=== PATIENT | female | born 1965 | race Caucasian/White ===

== ENCOUNTER 2016-09-26 18:38 | Emergency (ER) | payer OTHER ==
[2016-09-26] MEDS ORDERED: Ondansetron INJ* 2 MG/ML VIAL IV ONE (19:43)
[2016-09-26] MEDS ORDERED: NS 0.9% 1000 ML* 1,000 ML IV ONE (19:43)
[2016-09-26] MEDS ORDERED: HYDROmorphone* 1 MG/ML 1 ML SYR IV ONE (19:43)
[2016-09-26 20:09] LABS: Hematocrit 34 % (35-47); Hemoglobin 10.3 g/dl (12.0-16.0); Mean Corpuscular HGB Conc 31 g/dl (31-36); Mean Corpuscular Hemoglobin 24 pg (27-31); Mean Corpuscular Volume 77 fL (80-97); Mean Platelet Volume 8 um3 (7.4-10.4); Red Blood Count 4.39 10^6/ul (4.0-5.4); Red Cell Distribution Width 17 % (10.5-15); White Blood Count 14.9 10^3/ul (3.5-10.8)
[2016-09-26 20:19] LABS: Add Diff/Slide Review? Manual Diff Added; Comments Flag Yes
[2016-09-26 20:27] LABS: Albumin 2.9 g/dL (3.2-5.2); BUN/Creatinine Ratio 12.3 (8-20); C Reactive Protein 25.29 mg/L (< 5.00); Calcium 8.8 mg/dL (8.6-10.3); EGFR African American 143.8 (>60); EGFR Non-African American 111.8 (>60); Globulin 3.5 g/dL (2-4); Total Bilirubin 0.4 mg/dL (0.2-1.0); Total Protein 6.4 g/dL (6.4-8.9)
--- NOTE | 2016-09-26 20:54 | ED ---
Mary Anderson Salem, scribed for Pablo Laura MD on 09/26/16 at 1928 . Skin Complaint - HPI Summary HPI Summary: Patient is a 51 y/o F who presents to the ED with an abscess on the left side of her abd and pain since the last few hours. states that she had gastric bypass surgery on July 31, 2016, but there was a leak, infection, and other complications with the surgery. She received 2 more surgeries after this. She reports 9/10 pain at the site of surgery, but has no other complaints. Pt takes Morphine for neuropathy and back pain with little alleviation to current pain. She is also taking Augmentin. Pt and are frustrated about outcome of surgery. - History of Current Complaint Chief Complaint: EDRashSkinAbscess Stated Complaint: ABSCESS/PAIN ON LEFT SIDE Hx Obtained From: Patient, Family/Leather Polisher Onset/Duration: Started Hours Ago, Still Present Skin Exposure Onset/Duration: Hours Ago Timing: Constant Onset Severity: Moderate Current Severity: Moderate Pain Intensity: 9 Pain Scale Used: 0-10 Numeric Skin Location: Abdomen - Left. Character: Pain Aggravating Symptom(s): Nothing Alleviating Symptom(s): Nothing Associated Signs & Symptoms: Negative Related History: Other: - Surgery. - Allergy/Home Medications Allergies/Adverse Reactions: Allergies Allergy/AdvReac Type Severity Reaction Status Date / Time No Known Allergies Allergy Verified 01/06/14 14:01 PMH/Surg Hx/FS Hx/Imm Hx - Surgical History Surgery Procedure, Year, and Place: Gastric bypass surgery - July 2016 Infectious Disease History: No Infectious Disease History: Denies: Traveled Outside the [place] in Last 30 Days - Family History Known Family History: Positive: Diabetes - Social History Alcohol Use: None Hx Substance Use: No Substance Use Type: Reports: None Hx Tobacco Use: Yes Smoking Status (MU): Former Smoker Review of Systems Negative: Fever Positive: Abdominal Pain, Other - Abscess and leaking, left abd. All Other Systems Reviewed And Are Negative: Yes Physical Exam Triage Information Reviewed: Yes Vital Signs On Initial Exam: Initial Vitals Temp Pulse Resp BP Pulse Ox 97.1 F 93 15 144/59 98 09/26/16 18:41 09/26/16 18:41 09/26/16 18:41 09/26/16 18:41 09/26/16 18:41 Vital Signs Reviewed: Yes Appearance: Positive: Well-Appearing, Pain Distress - Mild. Skin: Positive: Warm, Skin Color Reflects Adequate Perfusion, Dry Head/Face: Positive: Normal Head/Face Inspection Eyes: Positive: EOMI, AIDA ENT: Positive: Normal ENT inspection Neck: Positive: Supple, Nontender Respiratory/Lung Sounds: Positive: Clear to Auscultation, Breath Sounds Present Cardiovascular: Positive: RRR Abdomen Description: Positive: Other: - Two drains: 1. G2 drain, epigastrium 2. Wound drain, periumbilical. Left abd, tender to palpation. Purulent drainage on left lateral abd through skin. Bowel Sounds: Positive: Present Musculoskeletal: Positive: Normal, Strength/ROM Intact Neurological: Positive: Normal, Sensory/Motor Intact, Alert, Oriented to Person Place, Time Psychiatric: Positive: Affect/Mood Appropriate Diagnostics - Vital Signs Vital Signs Temp Pulse Resp BP Pulse Ox 09/26/16 18:41 97.0 F 94 15 144/59 98 - Laboratory Lab Results: Lab Results 09/26/16 09/26/16 09/26/16 Range/Units 20:00 20:00 20:00 WBC 14.9 H (3.5-10.8) 10^3/ul RBC 4.39 (4.0-5.4) 10^6/ul Hgb 10.3 L (12.0-16.0) g/dl Hct 34 L (35-47) % MCV 77 L (80-97) fL MCH 24 L (27-31) pg MCHC 31 (31-36) g/dl RDW 17 H (10.5-15) % Plt Count 337 (150-450) 10^3/ul MPV 8 (7.4-10.4) um3 Absolute Neuts (auto) Pending Absolute Lymphs (auto) Pending Absolute Monos (auto) Pending Absolute Eos (auto) Pending Absolute Basos (auto) Pending Absolute Nucleated RBC Pending Neutrophils % Pending Normal RBC Morphology Pending INR (Anticoag Therapy) 1.06 (0.89-1.11) APTT 28.2 (26.0-36.3) seconds Sodium 136 (133-145) mmol/L Potassium 4.0 (3.5-5.0) mmol/L Chloride 105 (101-111) mmol/L Carbon Dioxide 24 (22-32) mmol/L Anion Gap 7 (2-11) mmol/L BUN 7 (6-24) mg/dL Creatinine 0.57 (0.51-0.95) mg/dL Est GFR ( Amer) 143.8 (>60) Est GFR (Non-Af Amer) 111.8 (>60) BUN/Creatinine Ratio 12.3 (8-20) Glucose 102 H (70-100) mg/dL Lactic Acid (0.5-2.0) mmol/L Calcium 8.8 (8.6-10.3) mg/dL Total Bilirubin 0.40 (0.2-1.0) mg/dL AST 23 (13-39) U/L ALT 12 (7-52) U/L Alkaline Phosphatase 122 H (34-104) U/L C-Reactive Protein 25.29 H (< 5.00) mg/L Total Protein 6.4 (6.4-8.9) g/dL Albumin 2.9 L (3.2-5.2) g/dL Globulin 3.5 (2-4) g/dL Albumin/Globulin Ratio 0.8 L (1-3) 09/26/16 Range/Units 20:00 WBC (3.5-10.8) 10^3/ul RBC (4.0-5.4) 10^6/ul Hgb (12.0-16.0) g/dl Hct (35-47) % MCV (80-97) fL MCH (27-31) pg MCHC (31-36) g/dl RDW (10.5-15) % Plt Count (150-450) 10^3/ul MPV (7.4-10.4) um3 Absolute Neuts (auto) Absolute Lymphs (auto) Absolute Monos (auto) Absolute Eos (auto) Absolute Basos (auto) Absolute Nucleated RBC Neutrophils % Normal RBC Morphology INR (Anticoag Therapy) (0.89-1.11) APTT (26.0-36.3) seconds Sodium (133-145) mmol/L Potassium (3.5-5.0) mmol/L Chloride (101-111) mmol/L Carbon Dioxide (22-32) mmol/L Anion Gap (2-11) mmol/L BUN (6-24) mg/dL Creatinine (0.51-0.95) mg/dL Est GFR ( Amer) (>60) Est GFR (Non-Af Amer) (>60) BUN/Creatinine Ratio (8-20) Glucose (70-100) mg/dL Lactic Acid 0.9 (0.5-2.0) mmol/L Calcium (8.6-10.3) mg/dL Total Bilirubin (0.2-1.0) mg/dL AST (13-39) U/L ALT (7-52) U/L Alkaline Phosphatase (34-104) U/L C-Reactive Protein (< 5.00) mg/L Total Protein (6.4-8.9) g/dL Albumin (3.2-5.2) g/dL Globulin (2-4) g/dL Albumin/Globulin Ratio (1-3) Result Diagrams: 09/26/16 20:00 09/26/16 20:00 Lab Statement: Any lab studies that have been ordered have been reviewed, and results considered in the medical decision making process. Re-Evaluation - Re-Evaluation First Eval Re-Evaluation Time: 20:05 Comment: Informed pt of discussion with surgeon. Course/Dx - Course Course Of Treatment: NO CRITICAL CARE TIME. DISCUSSED WITH PATIENT'S BARIATRIC SURGEON, DR PEREZ, AT [facility] WHO PERFORMED THE SURGERY THAT IS NOW INFECTED. DUE TO THE PATIENT'S PAIN AND SURGICAL WOUND INFECTION, HE ACCEPTED HER INTRANSFER TO [facility]. I SPOKE WITH THE [facility] ED PHYSICIAN, DR DHALIWAL, WHO ACCEPTS THE PATIENT IN TRANSFER, STABLE. - Diagnoses Provider Diagnoses: Abdominal pain, Surgical wound infection - Physician Notifications Discussed Care Of Patient With: Ar Perez Time Discussed With Above Provider: 20:02 Instructed by Provider To: Other - Requested to speak to pt. Reason For Transfer: Other: - Continuity of care. Dr. Dhaliwal @ 2018 at ED, [facility]. Will accept. Discharge - Discharge Plan Condition: Stable Disposition: TRANS HIGHER LVL OF CARE FAC Referrals: Haven Westbrook DO [Primary Care Provider] - The documentation as recorded by the Mary ramsay Salem accurately reflects the service I personally performed and the decisions made by me, Pablo Laura MD.
[2016-09-26 21:05] LABS: Add Path Review? YES; Eosinophils % 2 % (0-6); Neutrophil % 71 % (38-83); RBC Morphology Normal (Normal)
[2016-09-26 22:37] VITALS: BP 127/76
== END 2016-09-26 22:42 | disposition short-term general hospital (02) ==
LOC: ED 18:38
DX: T81.4XXA Infection following a procedure, initial encounter (principal); L02.211 Cutaneous abscess of abdominal wall; Z87.891 Personal history of nicotine dependence; R10.9 Unspecified abdominal pain
CPT/HCPCS: 36415; 80053; 83605; 85025; 85060; 85610; 85730; 86140; 96374; 96375; 99283; J1170; J2405

== ENCOUNTER 2018-02-09 08:15 | Emergency (ER) | payer OTHER ==
[2018-02-09] MEDS ORDERED: NS 0.9% 1000 ML* 1,000 ML IV ONE (09:16)
[2018-02-09] MEDS ORDERED: Ondansetron INJ* 2 MG/ML VIAL IV ONE (09:16)
--- NOTE | 2018-02-09 09:28 | ED ---
Complex/Multi-Sys Presentation - HPI Summary HPI Summary: This patient is a 52 year old F presenting to [facility] accompanied by her with a chief complaint of right facial swelling since 2 days ago. The patient rates the pain 10/10 in severity. Symptoms aggravated by nothing. Symptoms alleviated by nothing. Patient reports dental pain, chills, BARROW, and ear ache in right side. Patient denies fever, sore throat, neck pain, nausea, vomiting. Patient denies taking abx. Hx of neuropathy in legs and feet. Patient denies smoking. - History Of Current Complaint Chief Complaint: EDFacialInjury Hx Obtained From: Patient Onset/Duration: Gradual Onset, Lasting Days - 2 days ago, Still Present Timing: Constant Severity Currently: Mild Severity Initially: Mild Location: Pain At: - right face Aggravating Factor(s): nothing Alleviating Factor(s): nothing Associated Signs And Symptoms: Positive: Headache, Edema - in legs, Other - dental pain on right side, right ear ache. Negative: Nausea, Vomiting, Fever - Allergies/Home Medications Allergies/Adverse Reactions: Allergies Allergy/AdvReac Type Severity Reaction Status Date / Time No Known Allergies Allergy Verified 02/09/18 08:18 PMH/Surg Hx/FS Hx/Imm Hx Endocrine/Hematology History: Reports: Hx Diabetes Opthamlomology History: Denies: Hx Legally Blind EENT History: Denies: Hx Deafness - Surgical History Surgery Procedure, Year, and Place: Gastric bypass surgery - July 2016. hysterectomy Infectious Disease History: Yes Infectious Disease History: Denies: Traveled Outside the [place] in Last 30 Days - Family History Known Family History: Positive: Diabetes - Social History Alcohol Use: None Hx Substance Use: No Substance Use Type: Reports: None Hx Tobacco Use: Yes Smoking Status (MU): Former Smoker Review of Systems Positive: Chills. Negative: Fever Negative: Blurred Vision, Diplopia Positive: Dental Pain - right side, Ear Ache - right ear ache, Other - swelling to right face. Negative: Sore Throat Negative: Chest Pain Negative: Cough Negative: Vomiting, Diarrhea Negative: hematuria Musculoskeletal: Other - negative neck pain Positive: Edema - in bilateral legs Positive: Other - redness in right leg Positive: Headache All Other Systems Reviewed And Are Negative: No Physical Exam - Summary Physical Exam Summary: Appearance: Alert, conversive, nontoxic appearing Skin: Warm, dry, no mottling, no contusions, redness in right leg HEENT: EOMI, PERRL, moist mucous membranes, upper teeth edentulous, abscess to where right incisor was, swelling to right face Neck: No masses on the neck, supple Respiratory: Clear to auscultation, breath sounds present, no rales, no rhonchi , no wheezes Cardiovascular: RRR, pulses are symmetrical in both lower and upper extremities Abdomen: Soft, non-tender Bowel Sounds: Present Musculoskeletal: No CVA tenderness, no obvious deformity, moving all extremities in a grossly normal manner, edema in legs Neurological: A&Ox3, CN II-XII Intact, moving all extremities symmetrically Psychiatric: Normal affect and mood Triage Information Reviewed: Yes Vital Signs On Initial Exam: Initial Vitals Temp Pulse Resp BP Pulse Ox 98.6 F 82 14 128/64 95 02/09/18 08:18 02/09/18 08:18 02/09/18 08:18 02/09/18 08:18 02/09/18 08:18 Vital Signs Reviewed: Yes Diagnostics - Vital Signs Vital Signs Temp Pulse Resp BP Pulse Ox 02/09/18 08:41 98.5 F 80 14 135/52 93 02/09/18 08:18 98.6 F 82 14 128/64 95 - Laboratory Result Diagrams: 02/09/18 09:31 02/09/18 09:31 Lab Statement: Any lab studies that have been ordered have been reviewed, and results considered in the medical decision making process. - CT CT Maxillofacial CT Interpretation: Positive (See Comments) - IMPRESSION: 1. EXTENSIVE CARIOUS DISEASE WITH MULTIPLE PERIAPICAL LUCENCIES BILATERALLY.. 2. THERE IS INFLAMMATORY CHANGE ALONG THE RIGHT FACE SUGGESTIVE OF CELLULITIS. THERE IS NO LOCULATED FLUID COLLECTION TO SUGGEST ABSCESS. THERE IS SOFT TISSUE DENSITY SUPERFICIAL TO THE PLATYSMA FASCIA WHICH MAY REPRESENT PHLEGMON. Dr. Carl has reviewed this report. CT Interpretation Completed By: Radiologist Complex Multi-Symp Course/Dx Course Of Treatment: This patient is a 52 year old F reporting right facial swelling and dental pain since [address] Maxillofacial reveals, per radiologist, extensive carious disease with multiple periapical lucencies bilaterally. There is inflammatory change along the right face suggestive of cellulitis. There is no loculated fluids collection to suggest abscess. There is soft tissue density superficial to the platysma fascia which may represent phlegmon. ED physician has reviewed this radiology report. Test results with no significant abnormalities. In the ED course the patient was given Zofran, clindamycin, contrast, and IV fluids. Patient will be discharged home with prescription for clindamycin and follow up from dentist. The patient is agreeable with this plan. - Diagnoses Provider Diagnoses: Facial cellulitis, Dental disease Discharge - Sign-Out/Discharge Documenting (check all that apply): Patient Departure - discharge home - Discharge Plan Condition: Stable Disposition: HOME Prescriptions: Clindamycin HCl 150 mg PO QID #40 capsule MDD 4 Patient Education Materials: Cellulitis (ED), Toothache (ED), Acute Dental Trauma in Children (ED) Forms: *Work Release Referrals: Haven Westbrook DO [Primary Care Provider] - Additional Instructions: follow up with your dentist. return if worse or any new symptoms. Take the anitbiotics as instructed. return if worse or any new symptoms. It is important to follow up with your primary care physician this week. - Billing Disposition and Condition Condition: STABLE Disposition: Home - Attestation Statements Document Initiated by Burtonibe: Yes Documenting Scribe: Cherri Patel Provider For Whom Mackenzie is Documenting (Include Credential): Zo Carl MD Scribe Attestation: Cherri Anderson, scribed for Zo Carl MD on 02/09/18 at 1707. Scribe Documentation Reviewed: Yes Provider Attestation: The documentation as recorded by the scribeCherri accurately reflects the service I personally performed and the decisions made by Zo hua MD
[2018-02-09 09:52] LABS: ABS Basophils 0 10^3/ul (0-0.2); ABS Eosinophils 0 10^3/ul (0-0.6); ABS Lymphocytes 1.5 10^3/ul (1.0-4.8); ABS Monocytes 0.9 10^3/ul (0-0.8); ABS Neutrophils 7.7 10^3/ul (1.5-7.7); ABS Nucleated RBC 0 10^3/ul; Eosinophil % 0.1 % (0-6); Hematocrit 38 % (35-47); Hemoglobin 12.6 g/dl (12.0-16.0); Lymphocyte % 14.5 % (25-47); Mean Corpuscular HGB Conc 33 g/dl (31-36); Mean Corpuscular Hemoglobin 28 pg (27-31); Mean Corpuscular Volume 84 fL (80-97); Mean Platelet Volume 8.6 um3 (7.4-10.4); Nucleated Red Blood Cells % 0; Platelet Count 253 10^3/ul (150-450); Red Blood Count 4.53 10^6/ul (4.00-5.40); Red Cell Distribution Width 19 % (10.5-15); White Blood Count 10.1 10^3/ul (3.5-10.8)
[2018-02-09 10:07] LABS: EGFR Non-African American 99.2 (>60)
[2018-02-09] MEDS ORDERED: Clindamycin 900 MG/D5W BAG(*) 900 MG/50 ML BAG IVPB ONE (10:10)
[2018-02-09] MEDS ORDERED: Iodixanol* (CONTRAST) 320 MG/ML 100 ML SDV IV ONE (10:17)
--- NOTE | 2018-02-09 11:20 | RAD ---
HISTORY: right upper dental abscess, facial swelling COMPARISONS: None TECHNIQUE: Multiple contiguous axial CT scans were obtained of the face with intravenous contrast, with coronal and sagittal multiplanar reformations. FINDINGS: BONES: There is no displaced fracture or dislocation. The orbital rim is intact. The zygomatic arch is intact. The pterygoid plates are intact. There is extensive carious disease with multiple. Lucencies along the mandible and maxilla bilaterally.. ORBITS: The globes are round. The optic nerves are symmetric. The extraocular musculature is normal. There is no post septal or intraconal inflammatory change. There is no retrobulbar hematoma. PARANASAL SINUSES: There is polypoid mucosal thickening versus mucus retention cysts of the maxillary sinuses bilaterally. BRAIN AND SOFT TISSUE: The buccal mucosa is redundant. There is stranding of the subcutaneous fat along the right mandible without enhancing loculated fluid collection. There is soft tissue density measuring up to 1 cm in size which may represent a phlegmon superficial to the platysma fascia. OTHER: None. IMPRESSION: 1. EXTENSIVE CARIOUS DISEASE WITH MULTIPLE PERIAPICAL LUCENCIES BILATERALLY.. 2. THERE IS INFLAMMATORY CHANGE ALONG THE RIGHT FACE SUGGESTIVE OF CELLULITIS. THERE IS NO LOCULATED FLUID COLLECTION TO SUGGEST ABSCESS. THERE IS SOFT TISSUE DENSITY SUPERFICIAL TO THE PLATYSMA FASCIA WHICH MAY REPRESENT PHLEGMON
[2018-02-09 12:05] VITALS: BP 112/36
== END 2018-02-09 12:03 | disposition home or self-care (01) ==
LOC: ED 08:15
DX: L03.211 Cellulitis of face (principal); K05.6 Periodontal disease, unspecified; Z87.891 Personal history of nicotine dependence
CPT/HCPCS: 36415; 70487; 80053; 83605; 85025; 87040; 96365; 99282; J2405; Q9967

== ENCOUNTER 2018-05-12 04:01 | Emergency (ER) | payer OTHER ==
--- NOTE | 2018-05-12 04:21 | ED ---
Upper Extremity Pain - HPI Summary HPI Summary: Patient is a 52 y/o F presenting to ED with complaints of right arm pain since two days ago. Pt states she woke up wtih pain to her RUE after having slept on her recliner. Pain has progressively worsened and is noted to be located from fingers all the way up to shoulder. No similar prior episodes. No neck pain, no falls, no fevers. PMHx of diabetes, neuropathy, PSHx of gastric bypass. Patient states that she is on morphine 30 mg daily, which she got from [place] [facility]. On triage, pain is rated 10/10, movement is noted to aggravate Sx, nothing is noted to alleviate Sx. - History of Current Complaint Chief Complaint: EDExtremityUpper Stated Complaint: RIGHT ARM PAIN Time Seen by Provider: 05/12/18 04:11 Hx Obtained From: Patient Mechanism Of Injury: Other - woke up wtih pain to her RUE after having slept on her recliner Onset/Duration: Started Days Ago - two days ago, Still Present, Worse Since Timing: Constant, Lasting Days - two days ago Severity Initially: Moderate Severity Currently: Severe Pain Location: Arm - right Aggravating Factor(s): Movement Alleviating Factor(s): Nothing Associated Signs & Symptoms: Positive: Other - NEGATIVE - FALLS. Negative: Fever, Neck Pain - Allergies/Home Medications Allergies/Adverse Reactions: Allergies Allergy/AdvReac Type Severity Reaction Status Date / Time No Known Allergies Allergy Verified 05/12/18 04:05 Home Medications: Home Medications Carbidopa/Levodop 25/100 MG(*) [Sinemet 25/100 TAB(*)] 1 tab PO DAILY 05/12/18 [ History Confirmed 05/12/18] Cholecalciferol (Vitamin D3) [Vitamin D3] 1 tab PO DAILY 05/12/18 [History Confirmed 05/12/18] Cholecalciferol TAB* [Vitamin D TAB*] 1 tab PO WEEKLY 05/12/18 [History Confirmed 05/12/18] Cyanocobalamin TAB* [Vitamin B12 TAB*] 1 tab PO DAILY 05/12/18 [History Confirmed 05/12/18] Cyclobenzaprine TAB* [Flexeril 10 MG TAB*] 1 tab PO DAILY PRN 05/12/18 [History Confirmed 05/12/18] Morphine Sulfate 30 mg PO TID 05/12/18 [History Confirmed 05/12/18] Pregabalin [Lyrica] 150 mg PO TID 05/12/18 [History Confirmed 05/12/18] Sertraline* [Zoloft*] 1 tab PO DAILY 05/12/18 [History Confirmed 05/12/18] PMH/Surg Hx/FS Hx/Imm Hx Endocrine/Hematology History: Reports: Hx Diabetes Cardiovascular History: Denies: Hx Hypertension History: Denies: Hx Renal Disease Sensory History: Denies: Hx Legally Blind, Hx Deafness Opthamlomology History: Denies: Hx Legally Blind - Surgical History Surgery Procedure, Year, and Place: Gastric bypass surgery - July 2016. hysterectomy Infectious Disease History: No Infectious Disease History: Denies: Traveled Outside the [place] in Last 30 Days - Family History Known Family History: Positive: Diabetes - Social History Alcohol Use: None Hx Substance Use: No Substance Use Type: Reports: None Hx Tobacco Use: Yes Smoking Status (MU): Former Smoker Review of Systems Positive: Other - NEGATIVE - FALLS . Negative: Fever Positive: Other - POSITIVE - RUE PAIN; NEGATIVE - NECK PAIN All Other Systems Reviewed And Are Negative: Yes Physical Exam - Summary Physical Exam Summary: VITAL SIGNS: Reviewed. GENERAL: Patient is a well-developed and nourished female who is lying comfortable in the stretcher. Patient is not in any acute respiratory distress. HEAD AND FACE: No signs of trauma. No ecchymosis, hematomas or skull depressions. No sinus tenderness. EYES: PERRLA, EOMI x 2, No injected conjunctiva, no nystagmus. EARS: Hearing grossly intact. Ear canals and tympanic membranes are within normal limits. MOUTH: Oropharynx within normal limits. NECK: Supple, trachea is midline, no adenopathy, no JVD, no carotid bruit, no c- spine tenderness, neck with full ROM. CHEST: Symmetric, no tenderness at palpation LUNGS: Clear to auscultation bilaterally. No wheezing or crackles. CVS: Regular rate and rhythm, S1 and S2 present, no murmurs or gallops appreciated. ABDOMEN: Soft, non-tender. No signs of distention. No rebound no guarding, and no masses palpated. Bowel sounds are normal. EXTREMITIES: No edema, no cyanosis or clubbing. Tenderness all the way from her right shoulder to right hand. She has decreased ROM secondary to pain. Neurovascular exam is intact. No arm swelling, redness, or warmness NEURO: Alert and oriented x 3. No acute neurological deficits. Speech is normal and follows commands. SKIN: Dry and warm Triage Information Reviewed: Yes Vital Signs On Initial Exam: Initial Vitals Temp Pulse Resp BP Pulse Ox 98.8 F 84 18 139/68 96 05/12/18 04:02 05/12/18 04:02 05/12/18 04:02 05/12/18 04:02 05/12/18 04:02 Vital Signs Reviewed: Yes Diagnostics - Vital Signs Vital Signs Temp Pulse Resp BP Pulse Ox 05/12/18 04:02 98.8 F 84 18 139/68 96 - Laboratory Result Diagrams: 05/12/18 04:31 05/12/18 04:31 Lab Statement: Any lab studies that have been ordered have been reviewed, and results considered in the medical decision making process. - CT ct cervical spine CT Interpretation Completed By: Radiologist Summary of CT Findings: IMPRESSION: 1. No acute findings. 2. Mild multilevel degenerative spondylosis with no significant spinal stenosis. or neural foraminal narrowing. 3. A 1.5 x 2.4 cm cystic lesion abutting the anterior aspect of the right. 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 This report was reviewed by ED physician. Re-Evaluation - Re-Evaluation First Eval Re-Evaluation Time: 06:24 Change: Improved Comment: Patient states that her pain has greatly improved. She will receive a sling for comfort and will be given neurologist follow up. Patient is agreeable with this. Course/Dx - Course Course Of Treatment: Patient is a 52 y/o F presenting to ED with complaints of right arm pain since two days ago. Pt states she woke up wtih pain to her RUE after having slept on her recliner. Pain has progressively worsened and is noted to be located from fingers all the way up to shoulder. No similar prior episodes. No neck pain, no falls, no fevers. PMHx of diabetes, neuropathy, PSHx of gastric bypass. Patient states that she is on morphine 30 mg daily, which she got from [place] [facility]. On physical exam, tenderness all the way from her right shoulder to right hand. She has decreased ROM secondary to pain. Neurovascular exam is intact. No arm swelling, redness, or warmness. CERVICAL SPINE CT IMPRESSION: 1. No acute findings. 2. Mild multilevel degenerative spondylosis with no significant spinal stenosis. or neural foraminal narrowing. 3. A 1.5 x 2.4 cm cystic lesion abutting the anterior aspect of the right. 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 Labs showed CRP 72.56, alk phos 226, glucose 110,. During ED course, patient received reglan 10 mg IV, toradol 15 mg IV, and Dilaudid 1 mg IV. 0624 - Patient states that her pain has greatly improved. She will receive a sling for comfort and will be given neurologist follow up. Patient is agreeable with this. - Diagnoses Provider Diagnoses: Neuropathy, Right arm pain Discharge - Sign-Out/Discharge Documenting (check all that apply): Patient Departure - discharge - Discharge Plan Condition: Stable Disposition: HOME Patient Education Materials: Arm Pain (ED) Referrals: Haven Westbrook DO [Primary Care Provider] - 2 Days Nabeel Steele MD [Medical Doctor] - 2 Days Additional Instructions: RETURN TO ED WITH ANY NEW OR WORSENING SYMPTOMS. FOLLOW UP WITH PRIMARY CARE PHYSICIAN WITHIN 2 DAYS. - Attestation Statements Document Initiated by Scribe: Yes Documenting Scribe: COREY NICHOLSON Provider For Whom Mackenzie is Documenting (Include Credential): ELLIE DUONG MD Scribe Attestation: COREY Anderson , scribed for ELLIE DUONG MD on 05/12/18 at 0630. Status of Scribe Document: Ready
[2018-05-12] MEDS ORDERED: HYDROmorphone INJ* 2 MG/ML CARPUJECT SYRINGE IV SLOW PU ONE (04:23)
[2018-05-12] MEDS ORDERED: Metoclopramide IV* 5 MG/ML 2 ML VIAL IV SLOW PU ONE (04:24)
[2018-05-12] MEDS ORDERED: Ketorolac INJ* 30 MG/ML 1 ML VIAL IV PUSH ONE (04:25)
[2018-05-12 04:43] LABS: ABS Basophils 0.1 10^3/ul (0-0.2); ABS Eosinophils 0.1 10^3/ul (0-0.6); ABS Lymphocytes 2.9 10^3/ul (1.0-4.8); ABS Monocytes 0.8 10^3/ul (0-0.8); ABS Nucleated RBC 0 10^3/ul; Eosinophil % 0.9 %; Hematocrit 39 % (35-47); Hemoglobin 12.9 g/dl (12.0-16.0); Lymphocyte % 29.4 %; Mean Corpuscular HGB Conc 33 g/dl (31-36); Mean Corpuscular Hemoglobin 29 pg (27-31); Mean Corpuscular Volume 86 fL (80-97); Mean Platelet Volume 8.1 fL (7.4-10.4); Nucleated Red Blood Cells % 0; Platelet Count 303 10^3/ul (150-450); Red Blood Count 4.51 10^6/ul (4.00-5.40); Red Cell Distribution Width 14 % (10.5-15); White Blood Count 9.9 10^3/ul (3.5-10.8)
[2018-05-12] MEDS ORDERED: HYDROmorphone INJ1* 1 MG/ML SYRINGE IV SLOW PU ONE (05:00)
[2018-05-12 05:02] LABS: Albumin 3.7 g/dL (3.2-5.2); Albumin/Globulin Ratio 1.1 (1-3); BUN/Creatinine Ratio 12.9 (8-20); C Reactive Protein 72.56 mg/L (<8.01); EGFR Non-African American 101.1 (>60); Globulin 3.3 g/dL (2-4); Potassium 3.8 mmol/L (3.5-5.0); Total Bilirubin 0.5 mg/dL (0.2-1.0)
[2018-05-12 06:35] VITALS: BP 96/49
== END 2018-05-12 06:35 | disposition home or self-care (01) ==
LOC: ED 04:01
DX: G62.9 Polyneuropathy, unspecified (principal); M79.601 Pain in right arm; Z87.891 Personal history of nicotine dependence
CPT/HCPCS: 36415; 72125; 80053; 85025; 86140; 96374; 96375; 99283; J1170; J1885; J2765

== ENCOUNTER 2018-08-31 11:23 | Emergency (ER) | payer OTHER ==
--- NOTE | 2018-08-31 11:39 | ED ---
Throat Pain/Nasal Congestion - HPI Summary HPI Summary: This patient is a 53 year old female presenting to [facility] with a chief complaint of dental pain since 2-3 days ago. 2 months ago, patient made an appointment with her dentist to extract her teeth. 2-3 days ago, patient began having pain on the right side of her teeth, which radiates down her jaw and up to her ear. The pain is described as throbbing. The pain is rated 8/10 in severity. Symptoms aggravated by nothing. Symptoms alleviated by nothing. Patient additionally notes right sided facial swelling. - History of Current Complaint Chief Complaint: EDDentalPain Time Seen by Provider: 08/31/18 11:31 Hx Obtained From: Patient Onset/Duration: Lasting Days, Still Present Severity: Severe Cough: None - Allergies/Home Medications Allergies/Adverse Reactions: Allergies Allergy/AdvReac Type Severity Reaction Status Date / Time No Known Allergies Allergy Verified 08/31/18 11:28 PMH/Surg Hx/FS Hx/Imm Hx Previously Healthy: No Endocrine/Hematology History: Reports: Hx Diabetes Cardiovascular History: Denies: Hx Hypertension History: Denies: Hx Renal Disease Sensory History: Denies: Hx Legally Blind, Hx Deafness Opthamlomology History: Denies: Hx Legally Blind - Surgical History Surgery Procedure, Year, and Place: Gastric bypass surgery - July 2016. hysterectomy Infectious Disease History: No Infectious Disease History: Denies: Traveled Outside the [place] in Last 30 Days - Family History Known Family History: Positive: Diabetes - Social History Lives: With Family Alcohol Use: None Hx Substance Use: No Substance Use Type: Reports: None Hx Tobacco Use: Yes Smoking Status (MU): Former Smoker Review of Systems Negative: Fever Positive: Dental Pain, Other - right sided facial swelling All Other Systems Reviewed And Are Negative: Yes Physical Exam - Summary Physical Exam Summary: Appearance: The patient is well-nourished in no acute distress and in no acute pain. Skin: The skin is warm and dry and skin color reflects adequate perfusion. HEENT: The head is normocephalic and atraumatic. The pupils are equal and reactive. The conjunctivae are clear and without drainage. Nares are patent and without drainage. 1st and 2nd premolars gone. 3rd premolar is necrotic with inflamed tissue around, no abscess. Anti cervical lymphadenopathy. The external ears are intact. The ear canals are patent and without drainage. The tympanic membranes are intact. Neck: The neck is supple with full range of motion and non-tender. There are no carotid bruits. There is no neck vein distension. Respiratory: Chest is non-tender. Lungs are clear to auscultation and breath sounds are symmetrical and equal. Cardiovascular: Heart is regular rate and rhythm. There is no murmur or rub auscultated. There is no peripheral edema and pulses are symmetrical and equal. Abdomen: The abdomen is soft and non-tender. There are normal bowel sounds heard in all four quadrants and there is no organomegaly palpated. Musculoskeletal: There is no back tenderness noted. Extremities are non-tender with full range of motion. There is good capillary refill. There is no peripheral edema or calf tenderness elicited. Neurological: Patient is alert and oriented to person, place and time. The patient has symmetrical motor strength in all four extremities. Cranial nerves are grossly intact. Deep tendon reflexes are symmetrical and equal in all four extremities. Psychiatric: The patient has an appropriate affect and does not exhibit any anxiety or depression. Triage Information Reviewed: Yes Vital Signs On Initial Exam: Initial Vitals Temp Pulse Resp BP Pulse Ox 97.9 F 58 16 129/61 96 08/31/18 11:24 08/31/18 11:24 08/31/18 11:24 08/31/18 11:24 08/31/18 11:24 Vital Signs Reviewed: Yes Diagnostics - Vital Signs Vital Signs Temp Pulse Resp BP Pulse Ox 08/31/18 11:24 97.9 F 58 16 129/61 96 - Laboratory Lab Statement: Any lab studies that have been ordered have been reviewed, and results considered in the medical decision making process. EENT Course/Dx - Course Course Of Treatment: Ms. Greenberg presented to the emergency department with a couple days of right sided toothache. She has significantly poor dentition and saw her dentist about a month ago and got referred up to [place] for extractions because she has sleep apnea and can't tolerate sedation well. She was nontoxic in appearance with stable vital signs. She clearly has poor dentition and she is getting some inflamed gum around a right mandibular premolar which is significantly carried. I will treat her with penicillin. She takes morphine every day for pain. - Diagnoses Provider Diagnoses: Toothache Discharge - Sign-Out/Discharge Documenting (check all that apply): Patient Departure Patient Received Moderate/Deep Sedation with Procedure: No - Discharge Plan Condition: Stable Disposition: HOME Prescriptions: Penicillin VK TAB* [Penicillin VK 250 mg Tab*] 500 mg PO QID #40 tab Patient Education Materials: Toothache (ED) Referrals: Haven Westbrook DO [Primary Care Provider] - Additional Instructions: Follow up with dentist as soon as possible. Return to the ED for any new or worsening symptoms. - Billing Disposition and Condition Condition: STABLE Disposition: Home - Attestation Statements Document Initiated by Mackenzie: Yes Documenting Burtonibe: Dae Carrasco Provider For Whom Mackenzie is Documenting (Include Credential): Mikel Choudhury MD Scribe Attestation: Dae Anderson scribed for Mikel Choudhury MD on 08/31/18 at 1753. Scribe Documentation Reviewed: Yes Provider Attestation: The documentation as recorded by the Dae ramsay accurately reflects the service I personally performed and the decisions made by me, Mikel Choudhury MD Status of Mackenzie Document: Viewed
[2018-08-31 11:56] VITALS: BP 121/52
== END 2018-08-31 11:54 | disposition home or self-care (01) ==
LOC: ED 11:23
DX: K08.89 Other specified disorders of teeth and supporting structures (principal); E11.9 Type 2 diabetes mellitus without complications; Z87.891 Personal history of nicotine dependence; Z98.84 Bariatric surgery status
CPT/HCPCS: 99282

== ENCOUNTER 2019-04-15 17:15 | Emergency (ER) | payer OTHER ==
[2019-04-15] MEDS ORDERED: Acetaminophen TAB* 325 MG PO ONE (17:47)
--- NOTE | 2019-04-15 17:48 | ED ---
Adult Trauma - HPI Summary HPI Summary: Patient complains of left side pain and pain with inhalation status post mechanical fall yesterday at 1 PM. Denies any other pain, injury or symptoms. - History of Current Complaint Chief Complaint: EDFall Stated Complaint: FALL INJ LT SIDE PAIN PER PT Time Seen by Provider: 04/15/19 17:35 Hx Obtained From: Patient Mechanism of Injury: Fall Ambulatory at the Scene: Yes Loss of Consciousness: no loss of consciousness Onset/Duration: Started Hours Ago Onset of Pain: Immediate Onset Severity: Moderate Current Severity: Moderate Pain Intensity: 6 Pain Scale Used: 0-10 Numeric Location: Chest Character: Aching Aggravating Factor(s): Movement, Deep Breaths, Palpation, Cough Alleviating Factor(s): Rest Associated Signs & Symptoms: Positive: Negative - Allergy/Home Medications Allergies/Adverse Reactions: Allergies Allergy/AdvReac Type Severity Reaction Status Date / Time No Known Allergies Allergy Verified 04/15/19 17:20 PMH/Surg Hx/FS Hx/Imm Hx Endocrine/Hematology History: Reports: Hx Diabetes Cardiovascular History: Denies: Hx Hypertension History: Denies: Hx Renal Disease Sensory History: Denies: Hx Legally Blind, Hx Deafness Opthamlomology History: Denies: Hx Eye Prosthesis, Hx Legally Blind EENT History: Denies: Hx Deafness - Surgical History Surgery Procedure, Year, and Place: Gastric bypass surgery - July 2016. hysterectomy Infectious Disease History: No Infectious Disease History: Denies: Traveled Outside the [place] in Last 30 Days - Family History Known Family History: Positive: Diabetes - Social History Alcohol Use: None Hx Substance Use: No Substance Use Type: Reports: None Hx Tobacco Use: Yes Smoking Status (MU): Former Smoker Review of Systems Constitutional: Negative Eyes: Negative ENT: Negative Cardiovascular: Other Respiratory: Negative Gastrointestinal: Negative Genitourinary: Negative Musculoskeletal: Negative Skin: Negative Neurological: Negative Psychological: Normal All Other Systems Reviewed And Are Negative: Yes Physical Exam - Summary Physical Exam Summary: No ecchymosis, erythema, deformity, swelling noted to left side chest or left lateral chest wall. Full range of motion of left upper extremity. Left lateral chest wall is tender to palpation. Lung sounds are clear to auscultation bilaterally. Abdomen soft nontender. Triage Information Reviewed: Yes Vital Signs On Initial Exam: Initial Vitals Temp Pulse Resp BP Pulse Ox 97.8 F 85 17 112/44 97 04/15/19 17:16 04/15/19 17:16 04/15/19 17:16 04/15/19 17:16 04/15/19 17:16 Vital Signs Reviewed: Yes Appearance: Positive: Well-Appearing Skin: Positive: Warm Head/Face: Positive: Normal Head/Face Inspection Eyes: Positive: Normal Neck: Positive: Supple Respiratory/Lung Sounds: Positive: Clear to Auscultation Cardiovascular: Positive: Normal Abdomen Description: Positive: Nontender Musculoskeletal: Positive: Normal Neurological: Positive: Normal Psychiatric: Positive: Normal AVPU Assessment: Alert - Francisco J Coma Scale Best Eye Response: 4 - Spontaneous Best Motor Response: 6 - Obeys Commands Best Verbal Response: 5 - Oriented Coma Scale Total: 15 Procedures - Sedation Patient Received Moderate/Deep Sedation with Procedure: No Diagnostics - Vital Signs Vital Signs Temp Pulse Resp BP Pulse Ox 04/15/19 17:16 97.8 F 85 17 112/44 97 - Laboratory Lab Statement: Any lab studies that have been ordered have been reviewed, and results considered in the medical decision making process. Adult Trauma Course/Dx - Course Course Of Treatment: Patient complains of left side pain and pain with inhalation status post mechanical fall yesterday at 1 PM. Denies any other pain , injury or symptoms. Vital signs within normal limits. X-ray of the ribs and chest negative for fracture. - Diagnoses Provider Diagnoses: Fall, Chest wall pain Discharge ED - Sign-Out/Discharge Documenting (check all that apply): Patient Departure - Discharge Plan Condition: Stable Disposition: HOME Prescriptions: Cyclobenzaprine TAB* [Flexeril 10 MG TAB*] 10 mg PO TID PRN 4 Days #12 tab PRN Reason: Pain - Moderate Lidocaine PATCH 5%* [Lidoderm 5% Patch*] 1 patch TRANSDERM DAILY 6 Days #6 patch Patient Education Materials: Chest Wall Pain (ED) Referrals: Haven Westbrook DO [Primary Care Provider] - Additional Instructions: Used lidocaine patches as directed for left side pain. Take Tylenol 650 mg every 4 hours for pain. Take Flexeril as directed for muscle pain. Follow-up with primary care. Return to the ED for any new or worsening symptoms. - Billing Disposition and Condition Condition: STABLE Disposition: Home - Attestation Statements Provider Attestation: I was available for consult. This patient was seen by the KELSIE. The patient was not presented to, seen by, or examined by me. Shahab Pete MD
[2019-04-15] MEDS ORDERED: Lidocaine PATCH 5%* 1 PATCH TRANSDERM SCH (18:00)
[2019-04-15 18:45] VITALS: BP 122/42
[2019-04-16] MEDS ORDERED: Lidocaine Patch REMOVE* 1 NOTE MISC PATCH OFF SCH (06:00)
== END 2019-04-15 18:44 | disposition home or self-care (01) ==
LOC: ED 17:15
DX: R07.89 Other chest pain (principal); W19.XXXA Unspecified fall, initial encounter; Y92.9 Unspecified place or not applicable; E11.9 Type 2 diabetes mellitus without complications; Z87.891 Personal history of nicotine dependence; Z98.84 Bariatric surgery status; Z90.710 Acquired absence of both cervix and uterus
CPT/HCPCS: 99282; A9270-GY

== ENCOUNTER 2019-05-31 10:32 | Emergency (ER) | payer OTHER ==
[2019-05-31 10:44] VITALS: BP 126/95
--- NOTE | 2019-05-31 11:06 | ED ---
Influenza-Like Illness - HPI Summary HPI Summary: 53 y/o female presented to [facility] complaining of flu-like symptoms present for 2 days. She has experienced fevers of 101.8F, chills, productive cough, and sore throat. She has taken Tylenol last at 0800. Symptoms currently rated 5/10 in severity. She has been around others who are sick recently. She reports no drug use. Patient has history of diabetes, gastric bypass, cholecystectomy, and hysterectomy. She has a family history of diabetes. - History of Current Complaint Chief Complaint: EDFluSymptoms Time Seen by Provider: 05/31/19 10:53 Hx Obtained From: Patient, Family/Used Car [employer] Onset/Duration: Lasting Days, Still Present Severity: Moderate Associated Signs & Symptoms: Fever, Cough - with sputum, Sore Throat Related Hx: Possible Flu/Infectious Exposure - Allergy/Home Medications Allergies/Adverse Reactions: Allergies Allergy/AdvReac Type Severity Reaction Status Date / Time No Known Allergies Allergy Verified 05/31/19 10:44 PMH/Surg Hx/FS Hx/Imm Hx Endocrine/Hematology History: Reports: Hx Diabetes Cardiovascular History: Denies: Hx Hypercholesterolemia, Hx Hypertension History: Denies: Hx Renal Disease Sensory History: Denies: Hx Eye Prosthesis, Hx Legally Blind, Hx Deafness Opthamlomology History: Denies: Hx Eye Prosthesis, Hx Legally Blind - Surgical History Surgical History: Yes Surgery Procedure, Year, and Place: Gastric bypass surgery - July 2016. hysterectomy Infectious Disease History: No Infectious Disease History: Denies: Traveled Outside the [place] in Last 30 Days - Family History Known Family History: Positive: Diabetes - Social History Alcohol Use: None Hx Substance Use: No Substance Use Type: Reports: None Hx Tobacco Use: Yes Smoking Status (MU): Former Smoker Review of Systems Positive: Fever, Chills Positive: Sore Throat Positive: Cough - with sputum All Other Systems Reviewed And Are Negative: Yes Physical Exam - Summary Physical Exam Summary: VITAL SIGNS: Reviewed. GENERAL: Patient is a well-developed and nourished female who is lying comfortable in the stretcher. Patient is not in any acute respiratory distress. HEAD AND FACE: No signs of trauma. No ecchymosis, hematomas or skull depressions. No sinus tenderness. Runny nose. EYES: PERRLA, EOMI x 2, No injected conjunctiva, no nystagmus. EARS: Hearing grossly intact. Ear canals and tympanic membranes are within normal limits. MOUTH: Oropharynx within normal limits. Dry oral mucosa. NECK: Supple, trachea is midline, no adenopathy, no JVD, no carotid bruit, no c- spine tenderness, neck with full ROM. CHEST: Symmetric, no tenderness at palpation. LUNGS: Coarse breath sounds bilaterally. No wheezing or crackles. CVS: Regular rate and rhythm, S1 and S2 present, no murmurs or gallops appreciated. ABDOMEN: Soft, non-tender. No signs of distention. No rebound, no guarding, and no masses palpated. Bowel sounds are normal. EXTREMITIES: FROM in all major joints, no edema, no cyanosis or clubbing. NEURO: Alert and oriented x 3. No acute neurological deficits. Speech is normal and follows commands. SKIN: Dry and warm. Triage Information Reviewed: Yes Vital Signs On Initial Exam: Initial Vitals Temp Pulse Resp BP Pulse Ox 98.2 F 115 19 126/95 95 05/31/19 10:41 05/31/19 10:41 05/31/19 10:41 05/31/19 10:41 05/31/19 10:41 Vital Signs Reviewed: Yes Procedures - Sedation Patient Received Moderate/Deep Sedation with Procedure: No Diagnostics - Vital Signs Vital Signs Temp Pulse Resp BP Pulse Ox 05/31/19 10:41 98.2 F 115 19 126/95 95 - Laboratory Lab Results: Lab Results 05/31/19 Range/Units 10:44 Influenza A (Rapid) Pending Influenza B (Rapid) Pending Lab Statement: Any lab studies that have been ordered have been reviewed, and results considered in the medical decision making process. Re-Evaluation - Re-Evaluation First Eval Re-Evaluation Time: 11:45 Comment: We discussed results and plan for discharge. Flu Symptom Course/Dx - Course Assessment/Plan: 53 y/o female presented to [facility] complaining of flu-like symptoms present for 2 days. She has experienced fevers of 101.8F, chills, productive cough, and sore throat. She has taken Tylenol last at 0800. Symptoms currently rated 5/10 in severity. She has been around others who are sick recently. She reports no drug use. Patient has history of diabetes, gastric bypass, cholecystectomy, and hysterectomy. She has a family history of diabetes. In the ED course, the patient was given Robitussin-AC for the dry cough. Influenza B is positive. Influenza A is negative. Therefore, the patient will be given a prescription for Tamiflu since the symptoms have been present for the last 2 days. The patient will also be given a prescription for Robitussin-AC for the dry cough. I discussed all the findings and test results with the patient. Patient was instructed to return to the emergency room immediately if any of the symptoms return or worsens. Plan of care was discussed with the patient, and he understands and agrees. All questions were answered at patient satisfaction. There were no further complaints or concerns. Lung exam before discharge: CTA B/L. Good air exchange. No wheezing or crackles heard. CVS: S1 and S2 present. No murmurs appreciated. Patient is alert and oriented x 3. Patient is hemodynamically stable. Patient will be discharged home with follow up PCP in the next 2-3 days. - Diagnoses Provider Diagnoses: Influenza A Discharge ED - Sign-Out/Discharge Documenting (check all that apply): Patient Departure - dc - Discharge Plan Condition: Stable Disposition: HOME Prescriptions: guaiFENesin/CODIENE 100mg/10mg [Robitussin AC 100Mg/10Mg in 5 ml] 5 ml PO Q6H PRN #90 ml MDD 20 ml PRN Reason: Cough Oseltamivir SUSP 75 MG dose* [Tamiflu SUSP 75 MG dose*] 75 mg PO BID #10 oral.syrin Patient Education Materials: Influenza (ED) Forms: *Work Release Referrals: Haven Westbrook DO [Primary Care Provider] - 3 Days Additional Instructions: FOLLOW UP WITH YOUR PRIMARY CARE PROVIDER WITHIN 1-3 DAYS. RETURN TO THE ED FOR ANY WORSENING OR NEW SYMPTOMS. - Billing Disposition and Condition Condition: STABLE Disposition: Home - Attestation Statements Document Initiated by Scribe: Yes Documenting Scribe: Megan Pringle Provider For Whom Mackenzie is Documenting (Include Credential): Hakeem Bloom MD Scribe Attestation: Jama Anderson Natalie George, scribed for Hakeem Bloom MD on 05/31/19 at 2139. Scribe Documentation Reviewed: Yes Provider Attestation: The documentation as recorded by the Jama ramsay Natalie George accurately reflects the service I personally performed and the decisions made by me, Hakeem Bloom MD Status of Scribe Document: Viewed
[2019-05-31 11:09] LABS: Influenza A Molecular POSITIVE (Negative)
[2019-05-31] MEDS ORDERED: guaiFENesin/CODIENE 100mg/10mg 5 ML UDC PO ONE (11:16)
== END 2019-05-31 11:44 | disposition home or self-care (01) ==
LOC: ED 10:32
DX: J10.1 Influenza due to other identified influenza virus with other respiratory manifestations (principal); E11.9 Type 2 diabetes mellitus without complications; Z87.891 Personal history of nicotine dependence
CPT/HCPCS: 99282; A9270-GY

== ENCOUNTER 2019-06-05 09:26 | Emergency (ER) | payer OTHER ==
--- NOTE | 2019-06-05 11:17 | ED ---
Influenza-Like Illness - HPI Summary HPI Summary: Patient is a 53 y/o F presenting to the ED for a chief complaint of influenza- like illness that began on 05/29/19. Patient complains of productive cough, shortness of breath, and fatigue. On 05/31/19, patient was seen at [facility] and diagnosed with influenza B. At that time, patient was prescribed Tamiflu and Robitussin without relief. No aggravating or alleviating factors are reported. PMHx is significant for DM. Allergies to any medications are denied. - History of Current Complaint Chief Complaint: EDUpperRespComplaint Time Seen by Provider: 06/05/19 11:05 Hx Obtained From: Patient Onset/Duration: Sudden Onset, Lasting Days, Still Present Severity: Moderate Associated Signs & Symptoms: Cough - Productive Related Hx: Possible Flu/Infectious Exposure - Allergy/Home Medications Allergies/Adverse Reactions: Allergies Allergy/AdvReac Type Severity Reaction Status Date / Time No Known Allergies Allergy Verified 06/05/19 09:44 Home Medications: Home Medications ALPRAZolam TAB* [Xanax TAB*] 0.25 mg PO TID PRN 06/05/19 [History Confirmed ] DULoxetine CAP* [Cymbalta CAP*] 30 mg PO DAILY 06/05/19 [History Confirmed ] Ferrous Sulfate TAB* 325 mg PO DAILY 06/05/19 [History Confirmed 06/05/19] Multivitamin/Folic Acid/Biotin [Hair, Skin and Nails Tablet] 1 each PO DAILY [History Confirmed 06/05/19] Multivitamins/Minerals TAB* [Theragran/minerals TAB*] 1 tab PO DAILY 06/05/19 [ History Confirmed 06/05/19] Ondansetron TAB* [Zofran 4 MG Tab*] 4 mg PO BID PRN 06/05/19 [History Confirmed 06/05/19] Pantoprazole TAB * [Protonix TAB*] 40 mg PO DAILY 06/05/19 [History Confirmed ] Vitamin B Complex TAB* [B Complex-50*] 1 tab PO DAILY 06/05/19 [History Confirmed 06/05/19] Zinc 50 mg PO DAILY 06/05/19 [History Confirmed 06/05/19] PMH/Surg Hx/FS Hx/Imm Hx Previously Healthy: Yes Endocrine/Hematology History: Reports: Hx Diabetes Cardiovascular History: Denies: Hx Hypercholesterolemia, Hx Hypertension History: Denies: Hx Renal Disease Sensory History: Denies: Hx Eye Prosthesis, Hx Legally Blind, Hx Deafness Opthamlomology History: Denies: Hx Eye Prosthesis, Hx Legally Blind EENT History: Denies: Hx Deafness - Surgical History Surgical History: Yes Surgery Procedure, Year, and Place: Gastric bypass surgery - July 2016. hysterectomy Infectious Disease History: No Infectious Disease History: Denies: Traveled Outside the [place] in Last 30 Days - Family History Known Family History: Positive: Diabetes - Social History Lives: With Family Alcohol Use: None Hx Substance Use: No Substance Use Type: Reports: None Hx Tobacco Use: Yes Smoking Status (MU): Former Smoker Review of Systems Positive: Fatigue Positive: Shortness Of Breath, Cough - Productive All Other Systems Reviewed And Are Negative: Yes Physical Exam - Summary Physical Exam Summary: Appearance: The patient is well-nourished in no acute distress and in no acute pain. Skin: The skin is warm and dry, and skin color reflects adequate perfusion. HEENT: The head is normocephalic and atraumatic. The pupils are equal and reactive. The conjunctivae are clear and without drainage. Nares are patent and without drainage. Mouth reveals moist mucous membranes, and the throat is without erythema and exudate. The external ears are intact. The ear canals are patent and without drainage. The tympanic membranes are intact. Neck: The neck is supple with full range of motion and non-tender. There are no carotid bruits. There is no neck vein distension. Respiratory: Chest is non-tender. Lungs breath sounds are symmetrical and equal. Crackles in the left lung. Cardiovascular: Heart is regular rate and rhythm. There is no murmur or rub auscultated. There is no peripheral edema and pulses are symmetrical and equal. Abdomen: The abdomen is soft and non-tender. There are normal bowel sounds heard in all four quadrants and there is no organomegaly palpated. Musculoskeletal: There is no back tenderness noted. Extremities are non-tender with full range of motion. There is good capillary refill. There is no peripheral edema or calf tenderness elicited. Neurological: Patient is alert and oriented to person, place and time. The patient has symmetrical motor strength in all four extremities. Cranial nerves are grossly intact. Deep tendon reflexes are symmetrical and equal in all four extremities. Psychiatric: The patient has an appropriate affect and does not exhibit any anxiety or depression. Triage Information Reviewed: Yes Vital Signs On Initial Exam: Initial Vitals Temp Pulse Resp BP Pulse Ox 97.2 F 81 16 128/64 96 06/05/19 09:41 06/05/19 09:41 06/05/19 09:41 06/05/19 09:41 06/05/19 09:41 Vital Signs Reviewed: Yes Procedures - Sedation Patient Received Moderate/Deep Sedation with Procedure: No Diagnostics - Vital Signs Vital Signs Temp Pulse Resp BP Pulse Ox 06/05/19 09:41 97.2 F 81 16 128/64 96 - Laboratory Lab Statement: Any lab studies that have been ordered have been reviewed, and results considered in the medical decision making process. - Radiology Chest X-ray Radiology Interpretation Completed By: Radiologist Summary of Radiographic Findings: Chest X-ray IMPRESSION: NO EVIDENCE FOR ACTIVE CARDIOPULMONARY DISEASE. Reviewed by Dr. Choudhury. Flu Symptom Course/Dx - Course Course Of Treatment: Ms. Greenberg presented with a cough that was worsened. She was diagnosed 5 days ago with influenza and is on her last day of Tamiflu she was nontoxic in appearance with stable vitals. She was given Robitussin with codeine while chest x-ray was obtained. The chest x-ray showed no infiltrate and I will treat her symptomatically as she got good relief from the Robitussin with codeine - Diagnoses Provider Diagnoses: Influenza Discharge ED - Sign-Out/Discharge Documenting (check all that apply): Patient Departure - Discharge - Discharge Plan Condition: Stable Disposition: HOME Prescriptions: guaiFENesin/CODIENE 100mg/10mg [Robitussin AC 100Mg-10Mg*] 5 ml PO Q4H PRN #250 udc MDD 30 PRN Reason: Cough Patient Education Materials: Influenza (ED) Forms: *Work Release Referrals: Haven Westbrook DO [Primary Care Provider] - Additional Instructions: RETURN TO THE EMERGENCY DEPARTMENT FOR CHANGING OR WORSENING SYMPTOMS. Follow up with your primary care physician in 2-3 days. - Billing Disposition and Condition Condition: STABLE Disposition: Home - Attestation Statements Document Initiated by Scribe: Yes Documenting Scribe: Samina Garcia Provider For Whom Scribe is Documenting (Include Credential): Mikel Choudhury MD Scribe Attestation: I, Samina Garcia, scribed for Mikel Choudhury MD on 06/05/19 at 1623. Scribe Documentation Reviewed: Yes Provider Attestation: The documentation as recorded by the beaibe, Samina Garcia accurately reflects the service I personally performed and the decisions made by me, Mikel Choudhury MD Status of Scribe Document: Viewed
[2019-06-05] MEDS ORDERED: guaiFENesin/CODIENE 100mg/10mg 5 ML UDC PO ONE (11:18)
[2019-06-05 12:42] VITALS: BP 134/84
== END 2019-06-05 12:44 | disposition home or self-care (01) ==
LOC: ED 09:26
DX: J10.1 Influenza due to other identified influenza virus with other respiratory manifestations (principal); E11.9 Type 2 diabetes mellitus without complications; Z87.891 Personal history of nicotine dependence
CPT/HCPCS: 71046; 99283; A9270-GY

== ENCOUNTER 2023-06-24 08:25 | Inpatient (IN) ==
[2023-06-24] MEDS: Lactated Ringers 1000 ml BAG 1,000 ML IV ONE ×3 (09:42→20:26)
[2023-06-24] MEDS: Bacitracin OINTMENT TUBE TOPICAL ONE (09:42)
[2023-06-24] MEDS: Ondansetron 4 mg VIAL 2 MG/ML 2 ml VIAL IV ONE (09:42)
[2023-06-24 09:52] LABS: Hematocrit 38.7 % (35-45); Hemoglobin 13.6 g/dL (11.5-14.3); Mean Corpuscular Hemoglobin 30.9 pg (27-33); Mean Corpuscular Hgb Conc 35.1 g/dL (31-36); Mean Corpuscular Volume 87.9 fL (80-97); Mean Platelet Volume 9.9 fL (7.5-11.2); Platelet Count 292 10^3/uL (150-450); Red Blood Count 4.41 10^6/uL (3.63-4.92); Red Cell Distribution Width 13.6 % (12-17); White Blood Count 9.3 10^3/uL (3.8-11.8)
[2023-06-24 10:00] LABS: INR 1.16 (0.83-1.13)
[2023-06-24 10:48] LABS: ABS Eosinophils 0.1 10^3/uL (0.0-0.5); ABS Lymphocytes 2.7 10^3/uL (1.0-4.8); ABS Monocytes 0.6 10^3/uL (0.0-0.9); ABS Neutrophils 5.8 10^3/uL (1.5-7.6); ABS Nucleated RBC 0.01 10^3/ul; Eosinophil % 1.1 %; Lymphocyte % 29.4 %; Nucleated Red Blood Cells % 0.1 %/100WBC (0.0-0.8); RBC Morphology Normal (Normal)
[2023-06-24 11:13] LABS: ALT 27 U/L (7-52); Albumin 2.9 g/dL (3.2-5.2); Alkaline Phosphatase 167 U/L (35-149); Blood Urea Nitrogen 5 mg/dL (6-24); C Reactive Protein 18.05 mg/L (<8.01); Calcium 7.6 mg/dL (8.6-10.3); Chloride 80 mmol/L (101-111); Creatinine, Serum 0.88 mg/dL (0.51-0.95); Globulin 2.9 g/dL (2-4); Glucose 105 mg/dL (70-100); Lipase < 10 U/L (11.0-82.0); Sodium 140 mmol/L (135-145); Total Bilirubin 0.9 mg/dL (0.2-1.0); Total Protein 5.8 g/dL (6.4-8.9); eGFR CKD-EPI 76.6 (>60)
[2023-06-24 11:15] LABS: CO2 Carbon Dioxide > 45 mmol/L (22-32)
[2023-06-24 11:53] LABS: Urine Appearance Clear; Urine Bilirubin Negative (Negative); Urine Blood Negative (Negative); Urine Color Light-Yellow; Urine Glucose Negative (Negative); Urine Ketones Negative (Negative); Urine Nitrite Negative (Negative); Urine Protein Negative (Negative); Urine Specific Gravity 1.004 (1.002-1.030); Urine Urobilinogen Negative (Negative); Urine pH 6.5 (5.0-8.0)
[2023-06-24 11:55] LABS: Urine Bacteria Absent /HPF (Absent); Urine Red Blood Cell Trace(0-2/hpf) /HPF (0-Trace); Urine Squamous Epithelial Cell Present /HPF (Absent); Urine White Blood Cell Trace(0-5/hpf) /HPF (0-Trace)
[2023-06-24 12:06] LABS: PCO2 Arterial 52 mmHg (35-45); PO2 Arterial 67 mmHg (80-100)
[2023-06-24] MEDS: Iohexol 300 (CONTRAST) 10 ML SDV IV ONE (12:20)
[2023-06-24] MEDS ORDERED: Ondansetron 4 mg VIAL 2 MG/ML 2 ml VIAL IV PRN (15:23)
[2023-06-24 15:43] LABS: ALT 24 U/L (7-52); Albumin 2.5 g/dL (3.2-5.2); Albumin/Globulin Ratio 0.9 (1-3); Alkaline Phosphatase 153 U/L (35-149); Blood Urea Nitrogen 5 mg/dL (6-24); Chloride 86 mmol/L (101-111); Creatinine, Serum 0.77 mg/dL (0.51-0.95); Globulin 2.8 g/dL (2-4); Glucose 95 mg/dL (70-100); Magnesium 1.5 mg/dL (1.9-2.7); Sodium 141 mmol/L (135-145); Total Bilirubin 0.8 mg/dL (0.2-1.0); Total Protein 5.3 g/dL (6.4-8.9); eGFR CKD-EPI 89.9 (>60)
[2023-06-24 15:45] LABS: Anion Gap 11 mmol/L (2-16); CO2 Carbon Dioxide 44 mmol/L (22-32)
[2023-06-24] MEDS: Pantoprazole VIAL 40 MG VIAL IV SCH (17:15)
[2023-06-24] MEDS: Magnesium Sulfate 2 gm BAG 2 GM/50 ML BAG IVPB ONE (17:19)
[2023-06-24 17:57] LABS: HDL Cholesterol 32.8 mg/dL; Potassium Redraw 1.7 mmol/L (3.5-5.0)
[2023-06-24] MEDS: NS 0.9% 1000 ml BAG 1,000 ML IV SCH (18:18)
[2023-06-24] MEDS: KCL 20 MEQ/100 ML IVPREMIX 20 MEQ/100 ML BAG IV SCH (18:20)
[2023-06-24] MEDS: acetaZOLAMIDE IV 500 MG in NS 0.9% 50 ML 50 ML IVPB SCH (18:44)
[2023-06-24] MEDS: Potassium EFFERVES 25 meq TAB PO ONE (19:01)
[2023-06-24] MEDS: Morphine ORAL.SOLN 10 mg 2 mg/ml UDC 5 ml (10 mg) PO SCH (19:19)
[2023-06-24] MEDS: Carbidopa/Levodop 25/100 MG TAB PO SCH (23:47)
[2023-06-25] MEDS: Magnesium Sulfate IV 1GM/100ML 1 GM/100 ML BAG IV ONE (00:19)
[2023-06-25] MEDS: DULoxetine DR 60 mg CAP PO SCH (08:12)
[2023-06-25 09:39] LABS: Blood Urea Nitrogen 4 mg/dL (6-24); CO2 Carbon Dioxide > 45 mmol/L (22-32); Calcium 7.4 mg/dL (8.6-10.3); Chloride 92 mmol/L (101-111); Creatinine, Serum 0.77 mg/dL (0.51-0.95); Glucose 96 mg/dL (70-100); Phosphorus 2.7 mg/dL (2.5-5.0); Potassium 2.1 mmol/L (3.5-5.0); Sodium 146 mmol/L (135-145); eGFR CKD-EPI 89.9 (>60)
[2023-06-25 09:53] LABS: Vitamin B12 > 1450 pg/mL (180-914)
[2023-06-25] MEDS ORDERED: KCL 20 MEQ/100 ML IVPREMIX 20 MEQ/100 ML BAG IV SCH (10:00)
[2023-06-25] MEDS: NS 0.9% 1000 ml BAG 1,000 ML IV ONE (10:15)
[2023-06-25] MEDS: KCL 10 MEQ/50 ML IVPREMIX 10 MEQ/50 ML BAG IV SCH (10:27)
[2023-06-25] MEDS: Potassium EFFERVES 25 meq TAB PO ONE (10:31)
[2023-06-25 16:00] LABS: Calcium 7.3 mg/dL (8.6-10.3); Creatinine, Serum 0.8 mg/dL (0.51-0.95); Potassium 2.4 mmol/L (3.5-5.0); eGFR CKD-EPI 85.9 (>60)
[2023-06-25 18:05] LABS: Magnesium 2.1 mg/dL (1.9-2.7)
[2023-06-25] MEDS: Enoxaparin 40 MG/0.4 ML SYR SUBCUT SCH (20:06)
[2023-06-25] MEDS: Potassium Chlor 20 meq TAB.ER PO SCH (22:15)
[2023-06-25] MEDS: KCL 20 MEQ/100 ML IVPREMIX 20 MEQ/100 ML BAG IV SCH (22:17)
[2023-06-26 01:00] LABS: Calcium 7.4 mg/dL (8.6-10.3); Creatinine, Serum 0.82 mg/dL (0.51-0.95); Potassium 2.8 mmol/L (3.5-5.0); eGFR CKD-EPI 83.4 (>60)
[2023-06-26 07:52] LABS: Anion Gap 7 mmol/L (2-16); Blood Urea Nitrogen 3 mg/dL (6-24); CO2 Carbon Dioxide 35 mmol/L (22-32); Calcium 7.5 mg/dL (8.6-10.3); Chloride 103 mmol/L (101-111); Creatinine, Serum 0.83 mg/dL (0.51-0.95); Glucose 76 mg/dL (70-100); Sodium 145 mmol/L (135-145); eGFR CKD-EPI 82.2 (>60)
[2023-06-26] MEDS: KCL 10 MEQ/50 ML IVPREMIX 10 MEQ/50 ML BAG IV SCH ×2 (08:01→17:45)
[2023-06-26 10:22] LABS: Urine Potassium Concentration 11.1 mmol/L
[2023-06-26 16:36] LABS: Calcium 7.5 mg/dL (8.6-10.3); Creatinine, Serum 0.79 mg/dL (0.51-0.95); Magnesium 1.8 mg/dL (1.9-2.7); Potassium 2.9 mmol/L (3.5-5.0); eGFR CKD-EPI 87.2 (>60)
[2023-06-26] MEDS: Potassium EFFERVES 25 meq TAB PO ONE (17:39)
[2023-06-26] MEDS: Magnesium Sulfate 2 gm BAG 2 GM/50 ML BAG IVPB ONE (21:23)
[2023-06-26] MEDS: KCL 20 MEQ/100 ML IVPREMIX 20 MEQ/100 ML BAG IV SCH (23:57)
[2023-06-27 06:41] LABS: Calcium 7.8 mg/dL (8.6-10.3); Creatinine, Serum 0.79 mg/dL (0.51-0.95); Potassium 3.7 mmol/L (3.5-5.0); eGFR CKD-EPI 87.2 (>60)
[2023-06-27 08:12] LABS: Magnesium 2.3 mg/dL (1.9-2.7)
[2023-06-27 10:34] VITALS: BP 103/66
== END 2023-06-27 14:30 | disposition home or self-care (01) | DRG 425 ==
LOC: ED 08:25 → EDHOLD 15:23 → MED 21:26
PROVIDERS: ADMIT Student in an Organized Health Care Education/Training Program; ATTEND Student in an Organized Health Care Education/Training Program